=== PATIENT | female | born 1980 | race Caucasian/White ===

== ENCOUNTER 2025-03-16 16:12 | Emergency (ER) | payer OTHER ==
[~2025-03-16] VITALS: Ht 160 cm; Wt 61.2 kg
[2025-03-16 18:18] LABS: PLATELET COUNT (AUTO) 139 K/uL (150-450); RED BLOOD CELL COUNT(AUTO) 4.16 MIL/uL (4.0-5.2); RED CELL DISTRIBUTION WIDTH 12.8 % (11.5-15.0); WHITE BLOOD COUNT (AUTO) 6.5 K/uL (4.3-11.0)
[2025-03-16 18:35] LABS: CALCIUM, SERUM 8.7 mg/dL (8.5-10.1); CREATININE 0.7 mg/dL (0.6-1.3); SODIUM SERUM 142.0 mmol/L (136-145); UREA NITROGEN, BLOOD 16.0 mg/dL (7-18)
[2025-03-16] MEDS ORDERED: KETOROLAC TROMETHAMINE 15 MG/ML VIAL ONE (18:48)
[2025-03-16] MEDS: KETOROLAC TROMETHAMINE 15 MG/ML VIAL IM ONE (18:52)
[2025-03-16] MEDS: KETOROLAC TROMETHAMINE 15 MG/ML VIAL IV ONE (18:56)
[2025-03-16] MEDS ORDERED: LIDO30AD10 TP (19:15)
[2025-03-16] MEDS ORDERED: KETO10TA2 PO (19:15)
[2025-03-16] MEDS ORDERED: CYCL10TA9 PO (19:15)
[2025-03-16 19:32] VITALS: BP 118/72; TEMP 98.6; O2SAT 98
== END 2025-03-16 19:32 | disposition home or self-care (01) ==
LOC: ER 16:19
DX: M54.12 Radiculopathy, cervical region (principal); R07.9 Chest pain, unspecified; F17.200 Nicotine dependence, unspecified, uncomplicated; R20.2 Paresthesia of skin; M25.512 Pain in left shoulder
CPT/HCPCS: 99285; 71045; 96372; 93005; 73030; 85025; 80048; 36415; 84484; J1885